=== PATIENT | male | born 1950 | race Caucasian/White ===

== ENCOUNTER 2022-03-22 17:51 | Emergency (ER) | payer OTHER, SELFPAY ==
[2022-03-22 18:17] VITALS: BP 123/84; PULSE 72; RESP 16; TEMP 36.9; O2SAT 98
--- NOTE | 2022-03-22 20:03 | ED.SKABFB ---
HPI - Skin/Abscess/Foreign Bdy General Chief complaint: Skin/Abscess/Foreign Body Stated complaint: cyst on back- hx of skin cancer Time Seen by Provider: 03/22/22 19:45 Source: patient and family Mode of arrival: ambulatory Limitations: no limitations History of Present Illness HPI narrative: 71 years old white male history of seborrheic keratosis, one of them on his back got inflamed,, oozing thick yellow discharge for the last 2 weeks. Patient denies any fever, chills, nausea, vomiting. Patient is not diabetic went to urgent care who started him on antibiotic and topical ointment today. Related Data Allergies Allergy/AdvReac Type Severity Reaction Status Date / Time No Known Allergies Allergy Verified 03/22/22 18:49 Review of Systems Review of Systems: All systems reviewed & are unremarkable except as noted in HPI and below Exam Narrative: General appearance: Well-developed, well-nourished Skin: Normal color, widespread [place] keratosis on the back, chest and abdomen, and the scalp. one of them is inflamed , producing yellow discharge with pressure, surrounded by slight erythema 3 mm around the edge of the seborrhic keratosis Musculoskeletal: Normal range of motion, nontender back Neurologic: Alert and oriented ?3, [employer] is normal as tested, no gross motor deficit Course Course Emergency Course: Infected seborrheic keratosis Vital Signs Vital signs: Vital Signs Temperature 36.9 C 03/22/22 18:17 Pulse Rate 72 03/22/22 18:17 Respiratory Rate 16 03/22/22 18:17 Blood Pressure 123/84 03/22/22 18:17 Pulse Oximetry 98 03/22/22 18:17 Temperature 36.9 C 03/22/22 18:17 Pulse Rate 72 03/22/22 18:17 Respiratory Rate 16 03/22/22 18:17 Blood Pressure 123/84 03/22/22 18:17 Pulse Oximetry 98 03/22/22 18:17 Procedures Abscess I/D back: Date of Incision: 03/22/22 Time of Incision: 20:47 Side (if applicable): left Local Anesthetic: lidocaine 1% and with epi Amount of anesthesia used (mL): 4 Technique: incised with #11 blade Amount of fluid expressed (mL): 2 Irrigation: No Packing used?: none I&D Results: Pus Complications: bleeding Abcess I&D Additional Comments: Patient on Plavix, after removing the seborrheic keratosis, 1 cm x 1 cm diameter, subsequently uncontrolled bleeding despite of constant pressure for 15 minutes. Silver nitrate used with complete success of stopping the bleeding. Topical Neosporin, dressing, patient was observed for 30 minutes prior to discharge. No active bleeding at that time. Discharge Plan Discharge Clinical Impression: Seborrheic keratoses, inflamed Patient Disposition: Home, Self-Care Condition: Stable Instructions: Antibiotic Form, Abscess (ED) Additional Instructions: Return if symptoms are worsening , call your family physician for appointment, take Tylenol as as needed for aches and pain, continue home medications. Prescriptions: New cephalexin 500 mg capsule 500 mg PO Q8H Qty: 21 0RF Follow-up/Referrals: Flavio,Peggy Lara DO [Primary Care Provider] -
[2022-03-22] MEDS: SILVER NITRATE (*SP) STICK 1 EACH TOPICAL (20:24)
[2022-03-22] MEDS: LIDO 1%/EPINEPHRINE 1:100,000 20 ML VIAL (20:24)
[2022-03-22] MEDS: CEPHALEXIN 500 MG CAPSULE PO (20:44)
== END 2022-03-22 20:51 | disposition home or self-care (01) ==
PROVIDERS: Emergency Provider Emergency Medicine; PCP Family Medicine
DX: L82.0 Inflamed seborrheic keratosis (principal)
CPT/HCPCS: 10060; 99283; A9270